=== PATIENT | female | born 2000 | race Hispanic/Latino ===

== ENCOUNTER 2020-01-30 19:52 | Emergency (ER) | payer OTHER ==
[2020-01-30] MEDS ORDERED: Ondansetron PF 4 MG/2 ML Vial ONE (20:13)
[2020-01-30] MEDS ORDERED: Morphine 4 MG/ML VIAL ONE (20:13)
--- NOTE | 2020-01-30 20:49 | RAD ---
XR Knee Rt 2 View HISTORY: Injury, left foot pain FINDINGS: There is incomplete visualization of a fracture involving the shaft of the right fibula. No dislocation is seen at the knee joint
--- NOTE | 2020-01-30 20:53 | RAD ---
RIGHT ANKLE 2 VIEWS: Date: 01/30/2020 HISTORY: Fall. Pain. FINDINGS: There is soft tissue swelling. Lateral projection demonstrates a posterior malleolar fracture. On the AP projection, there is displaced medial malleolar fracture. There is subluxation of the tibiotalar articulation. There is a fracture involving the mid fibula diaphysis, mildly displaced. There appear to be well cor ticated calcifications in the soft tissues projecting over the lateral malleolus. IMPRESSION: 1. Displaced medial malleolar fracture. There is subluxation of the tibiotalar articulation. 2. Posterior malleolar fracture. 3. Lateral malleolar soft tissue calcifications. 4. There is a fracture involving the mid fibula diaphysis, mildly displaced. 5. Orthopedic consultation is recommended. POS: PPP
[2020-01-30] MEDS ORDERED: Ketorolac Tromethamine 30 MG/ML VIAL ONE (21:33)
[2020-01-30] MEDS ORDERED: Fentanyl 100 MCG/2 ML VIAL ONE (22:17)
--- NOTE | 2020-01-30 22:41 | RAD ---
RIGHT ANKLE 2 VIEWS: HISTORY: Injury, right ankle pain FINDINGS: Interval placement of a cast is seen since earlier exam of 8:15 PM from the same date. Fractures of t he medial and posterior malleoli are again seen. No significant change in alignment is identified.
--- NOTE | 2020-01-31 07:47 | RAD ---
EXAM: 2 views of the right tibia/fibula HISTORY: Leg pain after skateboard accident COMPARISON: None FINDINGS: There is an oblique fracture through the mid fibula. There is likely a fracture of the medi al malleolus. There may be a posterior malleolar fracture. IMPRESSION: Right tibia and fibula fractures as above
== END 2020-01-30 23:37 | disposition home or self-care (01) ==
LOC: ERS 19:52
DX: S82.841A Displaced bimalleolar fracture of right lower leg, initial encounter for closed fracture (principal); S82.451A Displaced comminuted fracture of shaft of right fibula, initial encounter for closed fracture; V00.131A Fall from skateboard, initial encounter
CPT/HCPCS: 29515; 96374; 96375; J1885; J2270; J2405; J3010